=== PATIENT | male | born 1965 | race Hispanic/Latino ===

== ENCOUNTER 2019-07-30 10:44 | Emergency (ER) | payer OTHER ==
--- NOTE | 2019-07-30 11:45 | CT ---
BRAIN CT WITHOUT IV CONTRAST: HISTORY: Right-sided facial droop, headache, throat pain, neck pain. FINDINGS: No focal mass or midline shift. No intra- or extraaxial hemorrhage. Sinuses and mastoids are clear of acute process. IMPRESSION: No significant acute intracranial process. No mass or bleed. POS: [facility]
[2019-07-30] MEDS ORDERED: Acetaminophen 500 MG TAB ONE (12:37)
== END 2019-07-30 13:28 | disposition home or self-care (01) ==
LOC: ERS 10:44
DX: G51.0 Bell's palsy (principal); I10 Essential (primary) hypertension; Z79.82 Long term (current) use of aspirin; Z86.73 Personal history of transient ischemic attack (TIA), and cerebral infarction without residual deficits; Z79.899 Other long term (current) drug therapy
CPT/HCPCS: 70450